=== PATIENT | male | born 1985 | race African-American/Black ===

== ENCOUNTER 2025-01-18 08:34 | Emergency (ER) | payer OTHER ==
[~2025-01-18] VITALS: Ht 175.3 cm; Wt 100.7 kg
[2025-01-18 08:38] VITALS: O2SAT 98
[2025-01-18 10:50] LABS: BASOPHILS % 0.8 % (0.0-2.0); EOSINOPHILS % 1.8 % (0.0-5.0); HEMATOCRIT. 38.3 % (42.0-52.0); MEAN CORPUSCULAR HEMOGLOBIN 27.1 pg (28.0-32.0); MEAN CORPUSCULAR HGB CONC 33.9 g/dL (31.0-37.0); MEAN PLATELET VOLUME 9.3 fl (7.4-10.4); MONOCYTES % 5.7 % (2.0-8.0); NEUTROPHILS % 72.7 % (40.0-76.0); PLATELET 319 x1000/uL (130-400); RED BLOOD CELL COUNT 4.78 mill/uL (4.7-6.1); RED CELL DISTRIBUTION WIDTH 13.2 % (11.6-14.6); WHITE BLOOD COUNT 10.6 x1000/uL (4.5-11.0)
[2025-01-18 10:58] LABS: CHLORIDE 100 mEq/L (98-107); POTASSIUM 3.6 mEq/L (3.5-5.1); SODIUM 135 mEq/L (136-145)
[2025-01-18 10:59] LABS: CARBON DIOXIDE 29 mEq/L (21-32)
[2025-01-18 11:00] LABS: CALCIUM 8.6 mg/dL (8.7-10.4)
[2025-01-18 11:04] LABS: CREATININE 3.7 mg/dL (0.6-1.3); GLUCOSE 204 mg/dL (70-105)
[2025-01-18 11:05] LABS: ETHANOL BLOOD < 10 mg/dL (<10); INR 0.9; PROTHROMBIN TIME 10.1 sec (9.6-11.0); UREA NITROGEN BLOOD 38 mg/dL (9-23)
[2025-01-18 11:06] LABS: TROPONIN I HIGH SENSITIVITY 8 ng/L (3.0-53)
[2025-01-18 11:07] LABS: CREATINE KINASE 541 IU/L (46-171)
[2025-01-18] MEDS: IBUPROFEN 600MG TABLET PO ONE (13:06)
[2025-01-18] MEDS: ASPIRIN 81MG TABLET PO NR (13:06)
[2025-01-18] MEDS ORDERED: LISINOPRIL 40MG TABLET PO ONE (13:15)
[2025-01-18] MEDS ORDERED: AMLODIPINE 10MG TABLET PO ONE (13:15)
[2025-01-18] MEDS ORDERED: DOCUSATE SODIUM 100MG CAPSULE PO PRN (13:30)
[2025-01-18] MEDS ORDERED: ACETAMINOPHEN 325MG TABLET PO PRN ×2 (13:30)
[2025-01-18] MEDS ORDERED: IPRATROPIUM/ALBUTEROL 0.5-3(2.5)MG/3ML NEB HHN PRN (13:30)
[2025-01-18] MEDS ORDERED: DEXTROSE 50% WATER 50ML SYRINGE IV PRN (13:30)
[2025-01-18] MEDS ORDERED: ONDANSETRON HCL 4MG/2ML INJ IV PRN (13:30)
[2025-01-18] MEDS ORDERED: CLONIDINE 0.1MG TABLET PO PRN (13:30)
[2025-01-18] MEDS: INSULIN LISPRO 100 UNITS/ML SUBCUT SCH (13:38)
[2025-01-18 14:04] LABS: THYROID STIMULATING HORMONE 1.19 uIU/mL (0.55-4.78)
[2025-01-18 14:06] VITALS: BP 176/104; PULSE 10; RESP 13; TEMP 36.7; O2SAT 100
[2025-01-18 14:36] LABS: VITAMIN B12 SERUM 1294 pg/mL (211-911)
[2025-01-18] MEDS ORDERED: BLOOD SUGAR DIAGNOSTIC STRIP TEST SCH (17:00)
[2025-01-18] MEDS ORDERED: IOHEXOL-350 100 ML BOTTLE ONE (23:35)
== END 2025-01-18 14:11 | disposition short-term general hospital (02) ==
LOC: ER 08:34 → CANBEDREQ 12:21 → ER 14:11
DX: I63.9 Cerebral infarction, unspecified (principal); I16.0 Hypertensive urgency; I10 Essential (primary) hypertension; E11.65 Type 2 diabetes mellitus with hyperglycemia; Z79.899 Other long term (current) drug therapy
CPT/HCPCS: 80061; 80048; 80320; 82550; 82607; 82962; 83036; 84443; 85025; 85610; 84484; 36415; 71045; 70496; 70498; 70450; 93005; 96372; 99291; Q9967; Z7610 ×3; J1815; G0480